=== PATIENT | male | born 1980 | race Caucasian/White ===

== ENCOUNTER 2018-10-11 00:31 | Emergency (ER) | payer BC ==
[2018-10-11] MEDS ORDERED: Ketorolac Tromethamine 60 MG/2 ML VIAL ONE (01:01)
== END 2018-10-11 01:16 | disposition home or self-care (01) ==
LOC: BURERS 00:31
DX: S43.402A Unspecified sprain of left shoulder joint, initial encounter (principal); F17.220 Nicotine dependence, chewing tobacco, uncomplicated; F98.8 Other specified behavioral and emotional disorders with onset usually occurring in childhood and adolescence; Z79.899 Other long term (current) drug therapy; X58.XXXA Exposure to other specified factors, initial encounter
CPT/HCPCS: 96372; J1885